=== PATIENT | female | born 1990 | race Caucasian/White ===

== ENCOUNTER 2019-06-22 11:46 | Day surgery (SDC) | payer BC ==
[~2019-06-22] VITALS: Ht 162.6 cm; Wt 69.5 kg
[2019-06-22] MEDS ORDERED: LACTATED RINGERS 1,000 ML IV SCH (12:04)
[2019-06-22] MEDS ORDERED: ACET650S21 PO (12:30)
[2019-06-22 12:31] VITALS: BP 109/77
[2019-06-22] MEDS ORDERED: ACET-1600 PO (12:31)
[2019-06-22] MEDS ORDERED: MIDAZOLAM 1 MG/ML, 5ML ONE (13:04)
[2019-06-22] MEDS ORDERED: FENTANYL PF 250 MCG/5ML ONE (13:04)
[2019-06-22 13:06] LABS: HCG UR SG 1.015 (1.003-1.030)
[2019-06-22] MEDS ORDERED: DEXAMETHASONE 4 MG/ML, 1ML ONE ×2 (14:09)
[2019-06-22] MEDS ORDERED: CEFAZOLIN 1,000 MG ONE (14:10)
[2019-06-22] MEDS ORDERED: LABETALOL 5MG/ML, 20ML IV PRN (15:00)
[2019-06-22] MEDS ORDERED: hydrALAzine 20 MG/ML, 1ML IV PRN (15:00)
[2019-06-22] MEDS ORDERED: DIAZEPAM 5 MG/ML, 2ML IVPush PRN (15:00)
[2019-06-22] MEDS ORDERED: PROMETHAZINE 25 MG/ML, 1ML IV PRN (15:00)
[2019-06-22] MEDS ORDERED: ONDANSETRON 2MG/ML, 2ML IV PRN (15:00)
[2019-06-22] MEDS ORDERED: HYDROmorphone 2 MG/ML, 1ML IVPush PRN (15:00)
[2019-06-22] MEDS ORDERED: OXYcodone 5 MG/5 ML ORAL.SOL UDC PO PRN (15:00)
[2019-06-22] MEDS ORDERED: MEPERIDINE/PF 25MG/ML,1ML IVPush PRN (15:00)
[2019-06-22] MEDS ORDERED: FENTANYL PF 100 MCG/2ML IV PRN (15:00)
[2019-06-22] MEDS ORDERED: ROPIvacaine/PF 0.2%, 20 ML ONE ×2 (15:59)
[2019-06-22] MEDS ORDERED: PROPOFOL 10 MG/ML, 20ML ONE (15:59)
[2019-06-22] MEDS ORDERED: ROCURONIUM 10MG/ML,5ML ONE (15:59)
[2019-06-22] MEDS ORDERED: ONDANSETRON 2MG/ML, 2ML ONE (15:59)
[2019-06-22] MEDS ORDERED: LIDOCAINE-MPF 2% ,5ML ONE (16:01)
[2019-06-22] MEDS ORDERED: OXYcodone 5 MG/5 ML ORAL.SOL UDC ONE (16:21)
[2019-06-22] MEDS ORDERED: HYDROmorphone 2 MG/ML, 1ML ONE (16:21)
== END 2019-06-22 18:00 | disposition home or self-care (01) ==
LOC: OUT 11:46
PROVIDERS: ATTEND Orthopaedic Surgery
DX: T84.84XA Pain due to internal orthopedic prosthetic devices, implants and grafts, initial encounter (principal); S86.391A Other injury of muscle(s) and tendon(s) of peroneal muscle group at lower leg level, right leg, initial encounter; M24.671 Ankylosis, right ankle; M93.271 Osteochondritis dissecans, right ankle and joints of right foot; Z88.8 Allergy status to other drugs, medicaments and biological substances; X58.XXXA Exposure to other specified factors, initial encounter; Y93.23 Activity, snow (alpine) (downhill) skiing, snowboarding, sledding, tobogganing and snow tubing; Y92.89 Other specified places as the place of occurrence of the external cause; Y99.8 Other external cause status; Y83.8 Other surgical procedures as the cause of abnormal reaction of the patient, or of later complication, without mention of misadventure at the time of the procedure
CPT/HCPCS: 20680; 27640; 27676; 27695; 29891; 29898; 64445; 64447; 81025; C1713; J0690; J1100; J1170; J2250; J2405; J2704; J2795; J3010; J7120